=== PATIENT | male | born 1975 | race Caucasian/White ===

== ENCOUNTER 2017-06-01 19:14 | Emergency (ER) | payer OTHER ==
[~2017-06-01] VITALS: Ht 185.4 cm; Wt 90.7 kg
[2017-06-01 19:32] VITALS: BP_SYST 145
[2017-06-01 20:22] VITALS: BP_SYST 145
== END 2017-06-01 20:22 | disposition home or self-care (01) ==
LOC: SED 19:14
DX: R07.89 Other chest pain (principal); F17.200 Nicotine dependence, unspecified, uncomplicated; Z88.1 Allergy status to other antibiotic agents; Z88.8 Allergy status to other drugs, medicaments and biological substances
CPT/HCPCS: 93005; 99283